=== PATIENT | female | born 1950 | race Caucasian/White ===

== ENCOUNTER 2018-06-12 20:27 | Inpatient (IN) | payer OTHER ==
[~2018-06-12] VITALS: Ht 144.8 cm; Wt 97.3 kg
[2018-06-12] MEDS ORDERED: OXYCODONE HCL10 MG PO (20:33)
[2018-06-12] MEDS ORDERED: KLOR-CON 1010 MEQ (20:33)
[2018-06-12] MEDS ORDERED: SULFAMETHOXAZOL1 TA3 (20:34)
[2018-06-12] MEDS ORDERED: VICTOZA0.6 MG/0.1 (20:34)
[2018-06-12] MEDS ORDERED: SUDOGEST60 MG (20:34)
[2018-06-12 21:22] LABS: BASOPHILS 0.4 % (0-2); EOSINOPHILS 0 % (0-7); HEMATOCRIT 41.6 % (36.0-48.0); HEMOGLOBIN 13.9 g/dL (12-16); IMMATURE GRANULOCYTES 0.2 % (0-5); MCH 32.3 pg (26.0-34.0); MCHC 33.4 g/dL (31.0-37.0); MCV 96.7 fL (80.0-100.0); MEAN PLATELET VOLUME 9.8 fL (7.4-10.4); MONOCYTES 11.6 % (2-11); NEUTROPHILS 62.8 % (40-80); RDW 12.6 % (11.5-14.5); WBC 5.4 10x3/uL (4.8-10.8)
[2018-06-12 21:29] LABS: PLATELET COUNT 160 10x3/uL (130-400)
[2018-06-12 21:39] LABS: ANION GAP 12.1 mmol/L (8-16); BILIRUBIN - TOTAL 0.45 mg/dL (0.2-1.3); CALCIUM 8.4 mg/dL (8.5-10.1); CARBON DIOXIDE 25.1 mmol/L (21.0-32.0); CREATININE - SERUM 0.9 mg/dL (0.6-1.3); POTASSIUM - SERUM 3.2 mmol/L (3.5-5.1)
[2018-06-12 21:50] LABS: TROPONIN-I 0.021 ng/mL (0.000-0.060)
--- NOTE | 2018-06-12 22:55 | NUR ---
RECEIVED VIA WHEELCHAIR FROM ER, PT IS A&O. IV-L.HAND-NS @100, TELEMTRY WILL BE APPLIED WHEN AVAILABLE, BED IS LOW, SRX2, CALL LIGHT IN REACH, WILL CONTINUE PLAN OF CARE
[2018-06-12] MEDS ORDERED: SYNTHROID88 MCG PO (22:59)
[2018-06-12] MEDS ORDERED: BENICAR20 MG (23:00)
[2018-06-12] MEDS ORDERED: BACTRIM 400-801 TAB PO (23:02)
[2018-06-12] MEDS ORDERED: COZAAR100 MG PO (23:03)
[2018-06-12] MEDS ORDERED: CYMBALTA60 MG PO (23:04)
[2018-06-12] MEDS ORDERED: METOPROLOL TART50 MG PO (23:04)
[2018-06-12] MEDS ORDERED: LANTUS INSULIN10 ML SC (23:09)
[2018-06-12 23:50] VITALS: BP 161/57
[2018-06-13 03:43] VITALS: BP 179/84
[2018-06-13 03:46] VITALS: BP 161/57; BMI 46.4
--- NOTE | 2018-06-13 04:05 | NUR ---
ADMISSION ASSESSMENT COMPLETED PER RN. MONITOR AND FOLLOW PLAN INTERVENTIONS.
--- NOTE | 2018-06-13 06:00 | NUR ---
[id number]-OD COVERAGE NEEDED
[2018-06-13 08:27] VITALS: BP 164/77
--- NOTE | 2018-06-13 09:19 | NUR ---
IVPB ROCEPHIN HUNG AT THIS TIME. PT A/O X4, WHEEZING NOTED TO UPPER LOBES. RESP EVEN AND NONLABORED ON RA. PT DENIES ANY NEEDS AT THIS TIME. CALL LIGHT IN REACH,NAD NOTED, WILL CONTINUE TO MONITOR.
--- NOTE | 2018-06-13 09:52 | NUR ---
EXPLAINED RATIONAL FOR SCDS TO PT. PT REFUSED TO WEAR SCDS AT THIS TIME. PT ALSO UP AD AG. PT UP TO SIDE OF BED, DENIES ANY NEEDS AT THIS TIME. CALL LIGHT IN REACH, NAD NOTED,W ILL CONTINUE TO MONITOR.
--- NOTE | 2018-06-13 11:15 | NUR ---
BLOOD SUGAR OF 207, 4UNITS OF HUMULIN GIVEN PER S/S. PT DENIES ANY NEEDS AT THIS TIME. CALL LIGHT IN REACH, NAD NOTED, WILL CONTINUE TO MONITOR.
[2018-06-13 13:34] VITALS: BP 173/77
[2018-06-13 14:04] VITALS: Ht 144.8 cm; Wt 97.3 kg
[2018-06-13 17:57] VITALS: BP 156/80
--- NOTE | 2018-06-13 19:18 | NUR ---
RECEIVED REPORT, WILL ASSUME CARE OF PT, PT IS VISITING WITH FAMILY, DENIES ANY NEEDS AT THIS TIME, BED IS LOW, SRX2, CALL LIGHT IN REACH, WILL CONTINUE PLAN OF CARE
[2018-06-13 21:43] VITALS: BP 168/79
[2018-06-14 01:07] VITALS: BP 147/51
[2018-06-14 05:57] VITALS: BP 178/78
--- NOTE | 2018-06-14 07:06 | NUR ---
RECEIVED BEDSIDE SHIFT REPORT. ASSUMED CARE OF PATIENT. PATIENT IN ISOLATION FOR INFLUENZA A. UPON REQUEST, PATIENT PROVIDED WITH APPLE JUICE AND FERMIN CRACKERS AT THIS TIME. INFORMED PATIENT WE NEEDED TO COLLECT SOME URINE. PT VERBALIZED HER UNDERSTANDING. NO DISTRESS. CALL LIGHT WITHIN REACH.
[2018-06-14 08:19] VITALS: BP 195/83
--- NOTE | 2018-06-14 09:17 | NUR ---
FSBS 189. PATIENT WOULD ONLY ACCEPT 10 UNITS OF LANTUS AT THIS TIME, REFUSED 30 TOTAL UNITS THAT WAS SCHEDULED. CALL LIGHT WITHIN REACH. UA COLLECTED AT THIS TIME. NO DISTRESS. FRESH ICE WATER PROVIDED.
[2018-06-14 11:02] LABS: APPEARANCE CLEAR (CLEAR); COLOR YELLOW (YELLOW)
[2018-06-14 11:03] LABS: BACTERIA MODERATE /hpf (NONE SEEN); BILIRUBIN NEGATIVE (NEGATIVE); EPITHELIAL CELLS 0-5 /hpf (0-5); GLUCOSE NEGATIVE (NEGATIVE); KETONE NEGATIVE (NEGATIVE); MUCUS <1+ /lpf (NONE SEEN); NITRITE NEGATIVE (NEGATIVE); PROTEIN 1+ mg/dL (NEGATIVE)
--- NOTE | 2018-06-14 11:24 | NUR ---
FSBS 220. 4 UNITS HUMULIN ADMINISTERED PER SLIDING SCALE. PATIENT AMBULATING IN ROOM. PATIENT SISTER IN ROOM ALSO. NO DISTRESS.
[2018-06-14 12:17] VITALS: BP 153/75
[2018-06-14] MEDS ORDERED: TAMIFLU75 MG PO (14:15)
--- NOTE | 2018-06-14 16:53 | MORECARE ---
CASE MANAGEMENT DISCHARGE SUMMARY PATIENT: WALLACE NGUYEN MORGAN UNIT: [id number] ADM DATE: 06/12/18 AGE: 68 : 52 SEX: F ROOM/BED: D.6410 AUTHOR: MARY,DOC PHYSICIAN: REFERRING PHYSICIAN: KARLO HERNANDEZ MD DATE OF SERVICE: 06/14/18 Discharge Plan Patient Name: WALLACE NGUYEN Facility: [facility]:[place] : 1950 Planned Disposition: Home Anticipated Discharge Date: 06/14/18 Discharge Date: Expected LOS: 2 Initial Reviewer: [email or web address] Initial Review Date: 06/14/2018 Generated: 06/14/18 5:52 pm Comments DCP- Discharge Planning Updated by [email or web address]: Armando Izaguirre on 06/14/18 3:[address] Patient Name: WALLACE NGUYEN Admission Status: ER Accout number: [id number] Admission Date: 06-12-2018 : 1950 Admission Diagnosis:SHORTNESS OF BREATH Attending: KARLO HERNANDEZ Current LOS: 2 Anticipated DC Date: 06-14-2018 Planned Disposition: Home Primary Insurance: [facility] Discharge Planning Comments: CM MET WITH PT IN ROOM TO DISCUSS DISCHARGE PLANNING AND NEEDS. PT REPORTS LIVING AT HOME INDEPENDENTLY WITH HER BOYFRIEND. PT HAS ROLLING WALKER WITH SEAT AND BRAKES THAT WAS GIVEN TO HER WITH NO MEDICAL EQUIPMENT PROVIDER PREFERENCE. PT HAS NO OUTSIDE SERVICES ASSISTING IN THE HOME. CM DISCUSSED AVAILABILITY OF HOME HEALTH, REHAB SERVICES AND MEDICAL EQUIPMENT. PT DENIES DISCHARGE NEEDS, REPORTS HER BOYFRIEND OF 4 YEARS WILL PICK HER UP FOR DISCHARGE HOME. Back Hoe Machine Operator: Armando Izaguirre DCPIA - Discharge Planning Initial Assessment Updated by [email or web address]: Armando Izaguirre on 06/14/18 4:48 pm * Is the patient Alert and Oriented? Yes * How many steps to enter\exit or inside your home? * PCP DR. GAUTHIER * Pharmacy [facility] * Preadmission Environment Home with Family * ADLs Independent * Equipment Rolling Walker * Other Equipment NO MEDICAL EQUIPMENT PROVIDER PREFERENCE * List name and contact numbers for known caregivers / representatives who currently or will assist patient after discharge: HIMANSHU PERRY, SISTER, * Verbal permission to speak to the caregivers and representatives has been obtained from the patient. N/A * Community resources currently utilized None * Please name any agencies selected above. NONE * Additional services required to return to the preadmission environment? No * Can the patient safely return to the preadmission environment? Yes * Has this patient been hospitalized within the prior 30 days at any hospital? No Patient Name: WALLACE NGUYEN Page [id number] at 1653 All edits/amendments must be made on the electronic document DICTATION DATE: 06/14/181651 KISS MIXER: ZACKERY 06/14/181651 RPT#: [id number] DC DATE: STATUS: ADM IN [facility] [address] [place] [address] END OF REPORT
--- NOTE | 2018-06-14 17:36 | NUR ---
1615 20 GAUGE IV REMOVED FROM LEFT HAND. CATHETER TIP INTACT. NO BLEEDING FROM SITE. TOELRATED IV REMOVAL WELL. 1630 DISCHARGE INSTRUCTIONS PROVIDED TO PATIENT. PATIENT VERBALIZED UNDERSTANDING OF ALL INSTRUCTIONS PROVIDED. 1645 PATIENT REFUSED WHEELCHAIR. PATIENT AMBULATED OFF UNIT WITH ALL PERSONAL BELONGINGS. PATIENT DISCHARGED TO HOME WITH HER SISTER. NO DISTRESS UPON LEAVING THE UNIT.
== END 2018-06-14 16:45 | disposition home or self-care (01) | DRG 194 ==
LOC: D.ER 20:27 → D.M2 21:36
PROVIDERS: Family Medicine; ADMIT Internal Medicine Nephrology
DX: J10.1 Influenza due to other identified influenza virus with other respiratory manifestations (principal); E87.1 Hypo-osmolality and hyponatremia; E87.6 Hypokalemia; I10 Essential (primary) hypertension; E11.9 Type 2 diabetes mellitus without complications; K75.9 Inflammatory liver disease, unspecified; M54.9 Dorsalgia, unspecified; G89.29 Other chronic pain